=== PATIENT | female | born 1980 | race Caucasian/White ===

== ENCOUNTER → 2022-11-04 | Outpatient (CLI) | payer OTHER | LOC: LAB 10:40 → LAB SHORT 10:40 | PROVIDERS: Physician Assistant | DX: Z12.4 Encounter for screening for malignant neoplasm of cervix (principal) | CPT/HCPCS: G0145 ==

== ENCOUNTER → 2024-04-13 | Outpatient (CLI) | payer OTHER | END | disposition home or self-care (01) | LOC: LAB SHORT 07:05 → LAB 07:05 | DX: C73 Malignant neoplasm of thyroid gland (principal) | CPT/HCPCS: 88173 ==

== ENCOUNTER 2024-05-03 09:21 | Day surgery (SDC) | payer OTHER ==
[~2024-05-03] VITALS: Ht 175.3 cm; Wt 108.8 kg
[~2024-05-03 09:21] MED LIST: EPINEPhrine HCl 1 MG / ML 30ML Vial ONE; Lactated Ringer's 1,000 ML IV ONE
[2024-05-03] MEDS ORDERED: EUTHYROX50 MC1 PO (09:48)
[2024-05-03] MEDS ORDERED: Lactated Ringer's 1,000 ML IV ONE ×2 (09:51→13:00)
[2024-05-03] MEDS ORDERED: propofoL 20 ML IV ONE (10:16)
[2024-05-03] MEDS ORDERED: FentaNYL Citrate 50 MCG/ML 2 ML Injection ONE ×3 (10:16→13:54)
[2024-05-03] MEDS ORDERED: Lidocaine 2%-Epineph 1:200000 20 ML SDV ONE (10:46)
[2024-05-03] MEDS ORDERED: SuccINYLCHOLINE Chloride 100 MG/5 ML 5MLSYR ONE (10:54)
[2024-05-03] MEDS ORDERED: Ondansetron HCl 2 MG / ML 2ML Vial ONE (10:54)
[2024-05-03] MEDS ORDERED: Rocuronium Bromide 10 MG/ML 5ML Injection IV ONE (10:54)
[2024-05-03] MEDS ORDERED: Dexamethasone Sod Phos 10 MG/ML 1ML VIAL ONE (10:54)
[2024-05-03] MEDS ORDERED: Sugammadex Sodium 200 MG/2ML SDV (100 MG/ML) ONE (12:00)
[2024-05-03 14:49] VITALS: BP 130/76
--- NOTE | 2024-05-03 15:33 | NUR ---
05/03/24 1533 Cr Mccormick PT REPORTED TOLERABLE 4/10 PAIN UPON D/C. SHE EXPRESSED READINESS TO RETURN HOME.
== END 2024-05-03 15:25 | disposition home or self-care (01) ==
LOC: ORSCSDS 09:21
PROVIDERS: Otolaryngology
PROC: 0GTG0ZZ Resection of Left Thyroid Gland Lobe, Open Approach (ICD-10-PCS; principal; 2024-05-03 10:30)
PROC: 0GTH0ZZ Resection of Right Thyroid Gland Lobe, Open Approach (ICD-10-PCS; principal; 2024-05-03 10:30)
DX: C73 Malignant neoplasm of thyroid gland (principal); E04.1 Nontoxic single thyroid nodule; Z79.899 Other long term (current) drug therapy; E66.9 Obesity, unspecified; Z68.35 Body mass index [BMI] 35.0-35.9, adult
CPT/HCPCS: 88305; 88307; J0171; J0330; J1100; J2405; J2704; J3010; J7120

== ENCOUNTER → 2024-10-20 | Outpatient (CLI) | payer OTHER ==
[~2024-10-20] MED LIST changes: -EPINEPhrine HCl 1 MG / ML 30ML Vial ONE; +EUTHYROX50 MC1 PO; -Lactated Ringer's 1,000 ML IV ONE
[2024-10-27 06:15] LABS: HPV HIGH RISK BY TMA Not Detected; HPV SOURCE Cervical
== END | disposition home or self-care (01) ==
LOC: LAB SHORT 10:29 → LAB 10:29
PROVIDERS: Obstetrics & Gynecology
DX: Z01.419 Encounter for gynecological examination (general) (routine) without abnormal findings (principal)
CPT/HCPCS: 87624; G0123